=== PATIENT | female | born 1980 | race Caucasian/White ===

== ENCOUNTER 2016-06-12 21:20 | Outpatient (CLI) | payer BC ==
[~2016-06-12] VITALS: Ht 162.6 cm; Wt 66.8 kg
[~2016-06-12 21:20] MED LIST: PRENAT PO
[2016-06-12 21:33] VITALS: Ht 162.6 cm; Wt 66.8 kg
[2016-06-12 21:34] VITALS: BP 117/68; PULSE 89; RESP 18
[2016-06-12] MEDS ORDERED: NITR-58 PO (21:39)
[2016-06-12] MEDS ORDERED: TERBUTALINE 1 MG/ML INJ SC ONE (22:30)
[2016-06-12] MEDS ORDERED: ACETAMINOPHEN 325 MG TAB PO PRN (22:30)
[2016-06-12 22:48] LABS: ADD UMIC YES; URINE BILIRUBIN (Dip) NEGATIVE (NEGATIVE); URINE BLOOD (Dip) TRACE (NEGATIVE); URINE COLOR LT. YELLOW (YELLOW); URINE GLUCOSE (Dip) NEGATIVE (NEGATIVE); URINE KETONES (Dip) NEGATIVE (NEGATIVE); URINE LEUKOCYTE ESTERASE (Dip) 1+ (NEGATIVE); URINE NITRITE (Dip) NEGATIVE (NEGATIVE); URINE TOTAL PROTEIN (Dip) NEGATIVE (NEGATIVE); URINE UROBILINOGEN (Dip) 0.2 E.U./dL (0.1-1.0)
[2016-06-12 23:19] LABS: SQUAMOUS EPITHELIAL CELL,UR FEW; URINE RBCS 0-2 /HPF ([, 0])
[2016-06-12 23:20] LABS: BACTERIA,URINE FEW
--- NOTE | 2016-06-13 02:20 | QN ---
Documentation Comment Laborist Dr Love's pt 36 y.o. with an IUP at 33w 6d c/o UC's since 1800 on 06/11 No bleeding or leaking. ++FM. PMHx: h/o seizures but of Lamictal once . Asked for referral to see another neurologist from her primary doctor since February but still has not been referred. Last seizure was 01/2017. Pt drives. Pt also has a h/o kidney stones. PSHx: lithotrypsy b/l. POBHx: x 5. NKDA. BP 177/68 T= 98.0. NST: baseline 130-140 bpm. Accels to 160 bpm. ? decel to 100bpm but not normal decel shape or contour as lots of accels in the middles. UC's q 10-15 min. Pt reports feeling much better after the one dose of terbutaline, but became tachycardic and didn't like how she felt. Says the UC's have returned somewhat. A: IUP at 33w 6d. False labor. P: Procardia 20 mg p.o. x 1. After 2 hours if pt is feeling much better then may be d/c'ed home. F/U with her doctor 06/16 as scheduled. SOPHY ESTRADA MD Jun 13, 2016 02:20
[2016-06-13] MEDS ORDERED: NIFEdipine 10 MG CAP PO ONE (02:30)
--- NOTE | 2016-06-13 04:49 | TRIAGE ---
OB Triage Datetime Report Generated by CPN: 06/13/2016 04:48 Datetime: 06/13/2016 03:28 Stage of : OB Triage Labor Evaluation Frequency: OCCASS Monitor Mode: External Duration (sec)2399: 40-100 Quality: Mild Pattern: Normal: <= 5 Contractions in 10 Minutes Resting Tone [place]: Relaxed Heart Rate FHR Baseline Rate: 135 Monitor Mode: External US Variability: Moderate 6-25 bpm Accelerations: 15X15 Decelerations: None Category: Category I Datetime: 06/13/2016 02:15 Stage of : OB Triage Labor Evaluation Frequency: OCCASS Monitor Mode: External Duration (sec)2399: 40-100 Quality: Mild Pattern: Normal: <= 5 Contractions in 10 Minutes Resting Tone [place]: Relaxed Heart Rate FHR Baseline Rate: 135 Monitor Mode: External US Variability: Moderate 6-25 bpm Accelerations: 15X15 Decelerations: None Category: Category I Pain Assessment Pain Scale: 3 Pain Presence: Constant Pain Type: Pressure Pain Location: Abdomen; Back Pain Relief Measures: Comfort Measures Datetime: 06/13/2016 01:33 Vaginal Exam Dilatation (cms): 1.0 Effacement (%): 50 Station: -2 Exam By: TRISTIN Cervix, Consistency: Moderate Cervix, Position: Posterior Datetime: 06/13/2016 01:15 Stage of : OB Triage Temperature Route: Oral Labor Evaluation Frequency: X3 Monitor Mode: External Duration (sec)2399: 40-100 Quality: Mild Pattern: Normal: <= 5 Contractions in 10 Minutes Resting Tone [place]: Relaxed Heart Rate FHR Baseline Rate: 135 Monitor Mode: External US Variability: Moderate 6-25 bpm Accelerations: 15X15 Decelerations: None Category: Category I Datetime: 06/13/2016 00:53 Assessment Type: Triage Datetime: 06/13/2016 00:15 Stage of : OB Triage Labor Evaluation Frequency: X3 Monitor Mode: External Duration (sec)2399: 40-80 Quality: Mild Pattern: Normal: <= 5 Contractions in 10 Minutes Resting Tone [place]: Relaxed Heart Rate FHR Baseline Rate: 140 Monitor Mode: External US Variability: Moderate 6-25 bpm Accelerations: 15X15 Decelerations: Variable Category: Category II Pain Assessment Pain Scale: 0 Pain Presence: Constant Pain Type: Pressure Pain Location: Back Pain Relief Measures: Comfort Measures Datetime: 06/12/2016 23:15 Stage of : OB Triage Labor Evaluation Frequency: X1 Monitor Mode: External Duration (sec)2399: 70 Quality: Mild Pattern: Normal: <= 5 Contractions in 10 Minutes Resting Tone [place]: Relaxed Heart Rate FHR Baseline Rate: 130 Monitor Mode: External US Variability: Moderate 6-25 bpm Accelerations: 15X15 Decelerations: Prolonged Category: Category II Pain Assessment Pain Scale: 0 Pain Presence: Constant Pain Type: Pressure Pain Location: Back Pain Relief Measures: Comfort Measures Datetime: 06/12/2016 22:27 Vaginal Exam Dilatation (cms): 1.0 Effacement (%): 50 Station: -2 Exam By: TRISTIN Vaginal Bleeding: None Cervix, Consistency: Moderate Cervix, Position: Anterior Datetime: 06/12/2016 22:15 Stage of : OB Triage Temperature Route: Oral Labor Evaluation Frequency: X4 Monitor Mode: External Duration (sec)2399: 40-80 Quality: Mild Pattern: Normal: <= 5 Contractions in 10 Minutes Resting Tone [place]: Relaxed Heart Rate FHR Baseline Rate: 135 Monitor Mode: External US Variability: Moderate 6-25 bpm Accelerations: 15X15 Decelerations: None Category: Category I Pain Assessment Pain Scale: 5 Pain Presence: Constant Pain Type: Cramping; Ache Pain Location: Abdomen; Back Pain Relief Measures: Comfort Measures Datetime: 06/12/2016 21:37 Assessment Type: Triage Maternal Assessment Level of Consciousness: Fully Conscious DTR's/Clonus: DTRs 2+; No Clonus Headache: Denies Blurred Vision: No Respiratory Effort: Unlabored; Regular Rhythm; Equal Expansion Breath Sounds, Left: Clear and Equal Breath Sounds, Right: Clear and Equal Nausea/Vomiting: Denies RUQ Epigastric Pain: Denies Lower Extremities Edema: None Upper Extremities Edema: None Facial Edema: None Fall Risk Assessment History of Falling: (0) No Secondary Diagnosis: (0) No Ambulatory Aid: (0) Bedrest/Nurse Assist IV Therapy: (0) No Gait: (0) Normal/Bedrest/Immobile Mental Status: (0) Oriented to Own Ability Fall Score: 0 Fall Risk Score Definition: No Risk: No action required Datetime: 06/12/2016 21:26 Time of Arrival: 06/12/2016 21:15 EGA: 33.5 Arrived By: Wheelchair Arrived From: Home Chief Complaint: ABD PAIN AND BACK SINCE 1800 Movement: Present Rupture of Membranes: Denies Vaginal Bleeding: None Vaginal Discharge: Denies Recent Sexual Intercouse: Denies Patient Complaints: Back Pain Additional Patient Complaints: PT. ON MACROBID, LAST DOSE TOMORROW MORNING, HX OF EPILEPSY Time Provider Notified: 06/12/2016 22:15 Provider Notified: NATAILE Initial Plan: EFM, ASSESSMENT, CALL MD FOR ORDERS Datetime: 05/23/2016 13:26 Fall Score: 0 Fall Risk Score Definition: No Risk: No action required Datetime: 05/23/2016 13:17 EGA: 30.6
== END 2016-06-13 03:35 | disposition home or self-care (01) ==
LOC: OBT 21:20 → L-D 21:21 → OBT 06-13 03:35
PROVIDERS: ATTEND Obstetrics & Gynecology
DX: O47.03 False labor before 37 completed weeks of gestation, third trimester (principal); O09.523 Supervision of elderly multigravida, third trimester; Z3A.33 33 weeks gestation of pregnancy
CPT/HCPCS: 81001; 96372; J3105; Z7500; Z7610; 81003; G0463

== ENCOUNTER 2016-06-24 12:39 | Outpatient (CLI) | payer BC ==
[~2016-06-24] VITALS: Ht 162.6 cm; Wt 66.4 kg
[~2016-06-24 12:39] MED LIST changes: +NITR-58 PO
[2016-06-24 12:45] VITALS: BP 126/75; PULSE 101; RESP 17; Ht 162.6 cm; Wt 66.4 kg
--- NOTE | 2016-06-24 13:56 | RADRPT ---
PROCEDURE: US OB biophysical profile. CLINICAL INDICATION: decreased movements, labor TECHNIQUE: Multiple sonographic images of the pelvis were obtained. The images were reviewed on a PACS workstation. COMPARISON: 05/23/2016 FINDINGS: There is a single viable intrauterine gestation. Cardiac activity is present with 134 beats per min [place]. There is a vertex presentation. The placenta is posterior. There is no evidence for an abruption or placenta previa. There is a normal amount of amniotic fluid with an ELEUTERIO = 13.2 cm. Biophysical profile: movement 2/2 tone 2/2. breathing 2/2 ELEUTERIO 2/2 Total 10/25 RPTAT: AA . IMPRESSION: Normal biophysical profile. . .Twin Maldonado MD, Date Time Electronically viewed and signed by .Twin Maldonado MD, MD on 06/24/2016 13:56 .S/
--- NOTE | 2016-06-24 13:56 | RADRPT ---
PROCEDURE: US OB. CLINICAL INDICATION: Size and dates , labor TECHNIQUE: Multiple sonographic images of the pelvis and gravid uterus were obtained. The images were reviewed on a PACS workstation. COMPARISON: 05/23/2016 FINDINGS: There is a single viable intrauterine gestation. Cardiac activity is present with 148 beats per min anh. There is a vertex presentation. The placenta is posterior. There is no evidence for an abruption or placenta previa. There is a normal amount of amniotic fluid with an ELEUTERIO = 13.2 cm. Measurements were made in order to determine age. The results are as follows: BPD =8.5 cm HC =29.6 cm AC =32.9 cm FL =6.9 cm Estimated gestational age of approximately 34 weeks and 6 days based on ultrasound measurements. Clinical age: 35 weeks and 3 days. The estimated date of delivery is 07/30/16, based on ultrasound measurements. The EFW = 2748 g, 56.8%, based on LMP age. RPTAT: AA IMPRESSION: Single viable intrauterine gestation of approximately 34 weeks and 6 days based on ultrasound measu rements. .Twin Maldonado MD, Date Time Electronically viewed and signed by .Twin Maldonado MD, on 06/24/2016 13:56 .S/
[2016-06-24] MEDS ORDERED: NIFEdipine 10 MG CAP PO ONE (14:30)
[2016-06-24 14:57] LABS: URINE BLOOD (Dip) POC Negative (NEGATIVE)
[2016-06-24] MEDS ORDERED: NIFE10CA19 PO (15:21)
--- NOTE | 2016-06-24 15:39 | TRIAGE ---
OB Triage Datetime Report Generated by CPN: 06/24/2016 15:39 Datetime: 06/24/2016 15:00 Labor Evaluation Frequency: X4 Monitor Mode: External Duration (sec)2399: 50-80 Quality: Moderate Pattern: Normal: <= 5 Contractions in 10 Minutes Resting Tone [place]: Relaxed Heart Rate FHR Baseline Rate: 130 Monitor Mode: External US FHR Baseline Changes: No Baseline Change Variability: Moderate 6-25 bpm Accelerations: 15X15 Decelerations: None Category: Category I Pain Assessment Pain Scale: 4 Pain Presence: Intermittent Pain Type: Contraction Pain Location: Abdomen; Back Pain Relief Measures: Comfort Measures Datetime: 06/24/2016 14:51 Vaginal Exam Dilatation (cms): 1.0 Effacement (%): 60 Station: -3 Exam By: KZARICK Datetime: 06/24/2016 13:57 Labor Evaluation Frequency: X3 Monitor Mode: External Duration (sec)2399: 60-100 Quality: Moderate Pattern: Normal: <= 5 Contractions in 10 Minutes Resting Tone [place]: Relaxed Heart Rate FHR Baseline Rate: 130 Monitor Mode: External US FHR Baseline Changes: No Baseline Change Variability: Moderate 6-25 bpm Accelerations: 15X15 Decelerations: None Category: Category I Pain Assessment Pain Scale: 4 Pain Presence: Intermittent Pain Type: Contraction Pain Location: Abdomen; Back Pain Relief Measures: Comfort Measures Datetime: 06/24/2016 13:21 Vaginal Exam Dilatation (cms): 1.0 Effacement (%): 60 Station: -3 Exam By: MIGNON Vaginal Bleeding: None Cervix, Consistency: Moderate Cervix, Position: Posterior Presentation 'A': Cephalic Datetime: 06/24/2016 13:00 Labor Evaluation Frequency: X2 Monitor Mode: External Duration (sec)2399: 50-60 Quality: Moderate Pattern: Normal: <= 5 Contractions in 10 Minutes Resting Tone [place]: Relaxed Heart Rate FHR Baseline Rate: 130 Monitor Mode: External US FHR Baseline Changes: No Baseline Change Variability: Moderate 6-25 bpm Accelerations: 15X15 Decelerations: None Category: Category I Pain Assessment Pain Scale: 4 Pain Presence: Intermittent Pain Type: Contraction Pain Location: Abdomen; Back Pain Relief Measures: Comfort Measures Datetime: 06/24/2016 12:49 Assessment Type: Triage Maternal Assessment Level of Consciousness: Fully Conscious DTR's/Clonus: DTRs 2+; No Clonus Headache: Denies Blurred Vision: No Respiratory Effort: Unlabored; Regular Rhythm Breath Sounds, Left: Clear and Equal Breath Sounds, Right: Clear and Equal Nausea/Vomiting: Present (Annotations: NAUSEA SINCE THIS MORNING, BETTER NOW) RUQ Epigastric Pain: Denies Lower Extremities Edema: None Degree: None Upper Extremities Edema: None Degree: None Facial Edema: None Fall Risk Assessment History of Falling: (0) No Secondary Diagnosis: (0) No Ambulatory Aid: (0) Bedrest/Nurse Assist IV Therapy: (0) No Gait: (0) Normal/Bedrest/Immobile Mental Status: (0) Oriented to Own Ability Fall Score: 0 Fall Risk Score Definition: No Risk: No action required Datetime: 06/24/2016 12:47 Time of Arrival: 06/23/2016 12:30 EGA: 35.2 Arrived By: Ambulatory Arrived From: Other Unit in Hospital Chief Complaint: PT PRESENTS TO TRIAGE FROM NST DUE TO CONTRACTIONS, PT WITH HISTORY OF PTD X5 Movement: Decreased Contractions: Irregular Contractions: Q5-10 Rupture of Membranes: Denies Vaginal Bleeding: None Vaginal Discharge: Denies Recent Sexual Intercouse: Denies Abdominal Trauma: Not Applicable Patient Complaints: Contractions; Back Pain Time Provider Notified: 06/24/2016 13:07 Provider Notified: SHAMSIAN Initial Plan: EFM/SVE/BPP/EFW Datetime: 06/24/2016 12:43 Pain Assessment Pain Scale: 4 Pain Presence: Intermittent Pain Type: Contraction Pain Location: Abdomen; Back Pain Relief Measures: Comfort Measures Datetime: 06/12/2016 21:37 Fall Score: 0 Fall Risk Score Definition: No Risk: No action required Datetime: 06/12/2016 21:26 EGA: 33.5 Datetime: 05/23/2016 13:26 Fall Score: 0 Fall Risk Score Definition: No Risk: No action required Datetime: 05/23/2016 13:17 EGA: 30.6
--- NOTE | 2016-06-27 11:38 | PN ---
DATE: 06/24/2016 SUBJECTIVE: The patient is a 36-year-old, complaining of uterine contractions. No leakage or vaginal bleeding. Positive movement. OBJECTIVE: Within normal limits. Vital signs reviewed and within normal limits. DATA: Ultrasound within normal limits. No cervical change. PLAN: The patient will be discharged home. Follow up with Dr. Love within 1 week. Dictated By: SALVATORE SALAS MD /NTS Conf#: [id number] DID#: [id number]
== END 2016-06-24 15:28 | disposition home or self-care (01) ==
LOC: OBT 12:39 → L-D 12:40 → OBT 15:28
PROVIDERS: ATTEND Obstetrics & Gynecology
DX: O62.9 Abnormality of forces of labor, unspecified (principal); O09.523 Supervision of elderly multigravida, third trimester; Z3A.35 35 weeks gestation of pregnancy
CPT/HCPCS: 76815; 76818; 81003; Z7500; Z7610; G0463

== ENCOUNTER 2016-06-30 19:50 | Inpatient (IN) | payer BC ==
[~2016-06-30] VITALS: Ht 162.6 cm; Wt 68.3 kg
[~2016-06-30 19:50] MED LIST changes: +NIFE10CA19 PO; -NITR-58 PO
--- NOTE | 2016-06-30 19:59 | NSTRPT ---
NST Information Datetime Report Generated by CPN: 06/30/2016 19:59 Datetime: 06/24/2016 10:26 NST Information EGA: 35.3 Test Number: 3 Time on Monitor: 06/24/2016 10:48 Time off Monitor: 06/24/2016 11:20 NST Duration (Min): 32 Reason for NST: labor; Other Reason for NST Other: Delivery Test and Monitor Explained: Monitor Explained; Test Explained; Verbalized Understanding Pulse: 95 Resp: 19 SBP: 118 DBP: 75 Test Evaluation NST Interventions: Reposition Patient Patient States Movement: Present Contraction Frequency: Q3-6min FHR Baseline : 130 Variability: Moderate 6-25bpm Accelerations: 15X15 Decelerations: None FHR Category: Category I NST Results: Reactive Comments: To u/s, ELEUTERIO 16.4, cephalic U/C's q 3-6, pt states she feels them. 1125-Dr Love paged, and 1141, 1152. 1200-Report to Dr Love, order received to send to triage with follow up NST for next week 07/01. POC explained to p t states understanding and compliance. 1207-Pt to triage, accomp by mother. states understanding and denies further questions at this time. Electronically Signed By E-Signature: with User ID: [id number] Datetime: 06/12/2016 21:26 NST Information EGA: 34.3 NST Duration (Min): 32 Datetime: 06/10/2016 13:38 NST Information EGA: 33.3 NST Duration (Min): 26
[2016-06-30 20:00] VITALS: Ht 162.6 cm; Wt 68.3 kg
[2016-06-30 20:02] VITALS: BP 139/93; PULSE 92; RESP 18
[2016-06-30] MEDS ORDERED: METHYLERGONOVINE 0.2 MG INJ IM PRN (21:00)
[2016-06-30] MEDS ORDERED: LACTATED RINGER'S 1,000 ML IV PRN (21:00)
[2016-06-30] MEDS ORDERED: OXYTOCIN 30 UNITS/LR 500 ML IV PRN (21:00)
[2016-06-30] MEDS ORDERED: MISOPROSTOL 200 MCG TAB PR PRN (21:00)
[2016-06-30] MEDS ORDERED: CARBOPROST 250 MCG INJ IM PRN (21:00)
[2016-06-30] MEDS ORDERED: LIDOCAINE 1% (MPF) 30 ML INJ INJ PRN (21:00)
[2016-06-30] MEDS ORDERED: DIAZEPAM 5 MG/ML SYG IV ONE (21:30)
[2016-06-30 22:04] LABS: ADD SCAN DIFF NO
[2016-06-30 22:12] LABS: BASOPHILS % 0.2 % (0.0-2.0); EOSINOPHILS # 0.2 10^3/ul (0.0-0.5); EOSINOPHILS % 1.2 % (0.0-7.0); HEMATOCRIT 32.2 % (37.0-47.0); HEMOGLOBIN 10.8 g/dl (12.0-16.0); LYMPHOCYTES # 2.3 10^3/ul (0.8-2.9); LYMPHOCYTES % 16.3 % (15.0-51.0); MEAN CORPUSCULAR HEMOGLOBIN 27.7 pg (29.0-33.0); MEAN CORPUSCULAR HGB CONC 33.5 g/dl (32.0-37.0); MEAN CORPUSCULAR VOLUME 82.6 fl (82.0-101.0); MEAN PLATELET VOLUME 10.2 fl (7.4-10.4); MONOCYTE # 1.3 10^3/ul (0.3-0.9); MONOCYTES % 9.2 % (0.0-11.0); NEUTROPHIL # 9.9 10^3/ul (1.6-7.5); NEUTROPHILS % 70.5 % (39.0-77.0); PLATELET COUNT 253 10^3/UL (140-415); RED CELL DISTRIBUTION WIDTH 14.3 % (11.5-14.5); WHITE BLOOD COUNT 14.1 10^3/ul (4.8-10.8)
[2016-06-30 22:14] LABS: ADD UMIC YES
[2016-06-30 22:15] LABS: URINE BILIRUBIN (Dip) NEGATIVE (NEGATIVE); URINE BLOOD (Dip) 1+ (NEGATIVE); URINE COLOR LT. YELLOW (YELLOW); URINE GLUCOSE (Dip) NEGATIVE (NEGATIVE); URINE KETONES (Dip) NEGATIVE (NEGATIVE); URINE TOTAL PROTEIN (Dip) NEGATIVE (NEGATIVE)
[2016-06-30] MEDS: LACTATED RINGER'S 1,000 ML IV SCH (22:15)
[2016-06-30 22:16] LABS: URINE LEUKOCYTE ESTERASE (Dip) 1+ (NEGATIVE); URINE NITRITE (Dip) NEGATIVE (NEGATIVE); URINE UROBILINOGEN (Dip) 0.2 E.U./dL (0.1-1.0)
[2016-06-30 22:20] LABS: ALBUMIN 3.3 g/dl (3.3-4.9)
[2016-06-30 22:21] LABS: INR 0.9; POTASSIUM 3.6 mmol/L (3.5-5.1); PROTIME 12.1 Sec (12.2-14.2); PT RATIO 0.9
[2016-06-30 22:22] LABS: PARTIAL THROMBOPLASTIN TIME 25.3 Sec (25.0-35.0)
[2016-06-30 22:22] LABS: SQUAMOUS EPITHELIAL CELL,UR FEW; URINE RBCS 0-2 /HPF (0)
[2016-06-30 22:23] LABS: ALBUMIN/GLOBULIN RATIO 0.94; BILIRUBIN,INDIRECT 0.4 mg/dl (0-1.1); BILIRUBIN,TOTAL 0.4 mg/dl (0.2-1.3); CREATININE 0.42 mg/dl (0.44-1.00); TOTAL PROTEIN 6.8 g/dl (6.1-8.1); URIC ACID 3.9 mg/dl (3.1-7.9)
[2016-06-30 22:24] LABS: CALCIUM 9.7 mg/dl (8.4-10.2)
--- NOTE | 2016-06-30 23:03 | TRIAGE ---
OB Triage Datetime Report Generated by CPN: 06/30/2016 23:03 Datetime: 06/30/2016 22:53 Stage of : Labor Labor Evaluation Frequency: 3-6 Monitor Mode: External Duration (sec)2399: 60-100 Pattern: Normal: <= 5 Contractions in 10 Minutes Resting Tone [place]: Relaxed Heart Rate FHR Baseline Rate: 130 Monitor Mode: External US Variability: Moderate 6-25 bpm Accelerations: 15X15 Decelerations: None Category: Category I Pain Assessment Pain Scale: 5 Pain Presence: Intermittent Pain Type: Contraction Pain Location: Abdomen; Back Pain Goal: 3 Pain Relief Measures: Comfort Measures Datetime: 06/30/2016 21:55 Stage of : Labor Assessment Type: Admission Assessment Vaginal Bleeding: None Maternal Assessment Level of Consciousness: Fully Conscious DTR's/Clonus: DTRs 2+; No Clonus Headache: Denies Blurred Vision: No Respiratory Effort: Unlabored; Regular Rhythm; Equal Expansion Breath Sounds, Left: Clear and Equal Breath Sounds, Right: Clear and Equal Nausea/Vomiting: Denies RUQ Epigastric Pain: Denies Lower Extremities Edema: None Degree: None Upper Extremities Edema: None Degree: None Facial Edema: None Fall Risk Assessment History of Falling: (0) No Secondary Diagnosis: (0) No Ambulatory Aid: (0) Bedrest/Nurse Assist IV Therapy: (20) Yes Gait: (0) Normal/Bedrest/Immobile Mental Status: (0) Oriented to Own Ability Fall Score: 20 Fall Risk Score Definition: No Risk: No action required Labor Evaluation Frequency: 4-6 Duration (sec)2399: 60-120 Pattern: Normal: <= 5 Contractions in 10 Minutes Resting Tone [place]: Relaxed Heart Rate FHR Baseline Rate: 130 Variability: Moderate 6-25 bpm Accelerations: 15X15 Decelerations: None Category: Category I Pain Assessment Pain Scale: 7 Pain Presence: Intermittent Pain Type: Contraction Pain Location: Abdomen; Back Pain Goal: 2 Datetime: 06/30/2016 21:15 Stage of : OB Triage Labor Evaluation Frequency: irregular Monitor Mode: External Duration (sec)2399: 60-100 Pattern: Normal: <= 5 Contractions in 10 Minutes Resting Tone [place]: Relaxed Heart Rate FHR Baseline Rate: 130 Monitor Mode: External US Variability: Moderate 6-25 bpm Accelerations: 15X15 Decelerations: None Category: Category I Pain Assessment Pain Scale: 5 Pain Presence: Intermittent Pain Type: Contraction Pain Location: Abdomen; Back Pain Goal: 3 Pain Relief Measures: Comfort Measures Vaginal Exam Dilatation (cms): 2.0 Effacement (%): 70 Station: -3 Exam By: ANGEL Pederson Vaginal Bleeding: None Cervix, Consistency: Soft Presentation 'A': Cephalic Datetime: 06/30/2016 20:35 Stage of : OB Triage Datetime: 06/30/2016 20:30 Stage of : OB Triage Datetime: 06/30/2016 20:12 Stage of : OB Triage Assessment Type: Admission Assessment Maternal Assessment Level of Consciousness: Fully Conscious DTR's/Clonus: DTRs 2+; No Clonus Headache: Denies Blurred Vision: No Respiratory Effort: Unlabored; Regular Rhythm; Equal Expansion Breath Sounds, Left: Clear and Equal Breath Sounds, Right: Clear and Equal Nausea/Vomiting: Denies RUQ Epigastric Pain: Denies Lower Extremities Edema: None Degree: None Upper Extremities Edema: None Degree: None Facial Edema: None Temperature Route: Oral Fall Risk Assessment History of Falling: (0) No Secondary Diagnosis: (0) No Ambulatory Aid: (0) Bedrest/Nurse Assist IV Therapy: (0) No Gait: (0) Normal/Bedrest/Immobile Mental Status: (0) Oriented to Own Ability Fall Score: 0 Fall Risk Score Definition: No Risk: No action required Monitor Mode: External Contraction Comments: Unable to assess. [place] adjusted. Heart Rate FHR Baseline Rate: 140 Monitor Mode: External US Variability: Moderate 6-25 bpm Accelerations: 15X15 Decelerations: Variable Category: Category II Pain Assessment Pain Scale: 5 Pain Presence: Intermittent Pain Type: Contraction Pain Location: Abdomen; Back; Perineum Pain Goal: 2 Pain Relief Measures: Comfort Measures Datetime: 06/30/2016 20:10 Time of Arrival: 06/30/2016 19:42 EGA: 36.2 Arrived By: Wheelchair Arrived From: Dr. Ramirez Movement: Present Contractions: Regular Time Contractions Began: 06/30/2016 08:00 Contractions: Q2MIN Rupture of Membranes: Denies Vaginal Bleeding: None Vaginal Discharge: Present Recent Sexual Intercouse: Denies Abdominal Trauma: Not Applicable Patient Complaints: Contractions Time Provider Notified: 06/30/2016 20:35 Provider Notified: Abusleme Initial Plan: VS, EFM Datetime: 06/24/2016 12:49 Fall Score: 0 Fall Risk Score Definition: No Risk: No action required Datetime: 06/24/2016 12:47 EGA: 35.2 Datetime: 06/12/2016 21:37 Fall Score: 0 Fall Risk Score Definition: No Risk: No action required Datetime: 06/12/2016 21:26 EGA: 33.5 Datetime: 05/23/2016 13:26 Fall Score: 0 Fall Risk Score Definition: No Risk: No action required Datetime: 05/23/2016 13:17 EGA: 30.6
[2016-06-30] MEDS ORDERED: ONDANSETRON 4 MG INJ IV PRN (23:30)
[2016-06-30] MEDS ORDERED: DIPHENHYDRAMINE 50 MG INJ IV PRN (23:30)
[2016-06-30] MEDS ORDERED: NALOXONE (0.4 MG/ML) INJ IV PRN (23:30)
[2016-06-30 23:41] LABS: BARBITURATES Negative (NEGATIVE); BENZODIAZEPINES Negative (NEGATIVE); CANNABINOIDS Positive (NEGATIVE); COCAINE Negative (NEGATIVE); OPIATES Negative (NEGATIVE)
[2016-07-01] MEDS: LACTATED RINGER'S 1,000 ML IV SCH ×2 (01:40→09:22)
[2016-07-01] MEDS: FENTAnyl 2MCG/ML-ROPIV 0.2% 100 ML BAG EPI SCH ×2 (09:35→09:59)
[2016-07-01] MEDS ORDERED: BUTORPHANOL 2 MG INJ ONE (12:57)
[2016-07-01] MEDS ORDERED: ALBUTEROL 0.5% (NEB) 2.5 MG/0.5 ML AMP ONE (13:12)
[2016-07-01] MEDS ORDERED: CEFAZOLIN 2 GM/50 ML (PMX) 50 ML IVPB ONE ×2 (13:25→13:30)
[2016-07-01] MEDS ORDERED: OXYTOCIN 30 UNITS/LR 500 ML IV PRN ×2 (13:30→14:00)
[2016-07-01] MEDS ORDERED: ALBUTEROL/IPRATROPIUM (NEB) 3 ML AMP HHN PRN (13:30)
[2016-07-01] MEDS ORDERED: morphine SULFATE/PF (10 MG/10 ML) INJ ONE (13:30)
[2016-07-01] MEDS ORDERED: MISOPROSTOL 200 MCG TAB PR PRN ×2 (13:30→14:00)
[2016-07-01] MEDS ORDERED: CARBOPROST 250 MCG INJ IM PRN ×2 (13:30→14:00)
[2016-07-01] MEDS ORDERED: OXYTOCIN 30 UNITS/LR 500 ML IV SCH ×4 (13:30)
[2016-07-01] MEDS ORDERED: ONDANSETRON 4 MG INJ ONE (13:30)
[2016-07-01] MEDS ORDERED: ALBUTEROL 0.083% (NEB) 2.5 MG/3 ML AMP HHN PRN (13:30)
[2016-07-01] MEDS ORDERED: BUTORPHANOL 2 MG INJ IV PRN (13:30)
[2016-07-01] MEDS ORDERED: OXYTOCIN 30 UNITS/LR 500 ML IV ONE (13:30)
[2016-07-01] MEDS ORDERED: AMPICILLIN 2 GM/NS (PMX) 100 ML IV ONE (13:30)
[2016-07-01] MEDS ORDERED: EPHEDrine SULFATE 50 MG/5 ML SYG ONE (13:30)
[2016-07-01] MEDS ORDERED: METHYLERGONOVINE 0.2 MG INJ IM PRN ×2 (13:30→14:00)
[2016-07-01] MEDS ORDERED: CEFAZOLIN 3 GM in DEXTROSE 5% 100 ML IV SCH (13:30)
[2016-07-01] MEDS ORDERED: OXYTOCIN 10 UNIT INJ ONE (13:31)
[2016-07-01] MEDS ORDERED: LIDOCAINE 2%/EPI 30 ML INJ ONE (13:31)
[2016-07-01] MEDS ORDERED: METOCLOPRAMIDE 10 MG INJ ONE (13:31)
[2016-07-01] MEDS ORDERED: LACTATED RINGER'S 1,000 ML IV SCH (13:55)
[2016-07-01] MEDS ORDERED: METHYLERGONOVINE 0.2 MG TAB PO PRN (14:00)
[2016-07-01] MEDS ORDERED: ACETAMINOPHEN/CODEINE #3 TAB PO PRN (14:00)
[2016-07-01] MEDS ORDERED: LANOLIN 7 GM TUBE TOP PRN (14:00)
[2016-07-01] MEDS ORDERED: NIFEdipine 10 MG CAP PO PRN (14:00)
[2016-07-01] MEDS: IBUPROFEN 800 MG TAB PO SCH ×2 (14:00→22:00)
[2016-07-01] MEDS ORDERED: NA PHOSPHATE/BIPHOS 133 ML ENEMA PR PRN (14:00)
--- NOTE | 2016-07-01 14:08 | PREOPHP ---
DATE OF ADMISSION: 06/30/2016 HISTORY OF PRESENT ILLNESS: This is a 36-year-old female, 6, para 5 with 5 living children, EDC 07/26/2016, last period 10/13/2015. This patient had a history of depression, asthma, kidney stone of bipolar disorder, epilepsy with a history of head trauma, tonsillectomy and nose surgery. She had 5 previous deliveries, all of them early. The earliest was at 33 weeks and the latest at 38 weeks. At this time, she has been admitted for contractions and dilatation of 2 cm, 80% effaced. The patient had been camila all night and she had an epidural due to severe pain and she had no progress of labor. An evaluation after several hours of labor was done and artificial rupture of m embranes was done. The patient started having bleeding. She had a history of placenta previa that technically had moved and at the time of rupture of membranes she started bleeding with clots, with the possibility of an abruption. The patient's heart tones also went down with slight hypotension a nd she started having some chest pain. She stated that at the time she had episodes of chest pain a nd difficulty breathing, she was given a breathing treatment and Stadol for the chest pain in spite of having an epidural anesthesia and she started feeling better. The patient had pain on Lamictal d uring the that she had stopped recently, due to the last visit to her neurologist and this what he advised her to do. She also is requesting a tubal ligation. At this time due to variability and a prolonged deceleration of 8 minutes and active bleeding with clots and she is advised for a section and tubal ligation as she requested a tubal lig ation. The patient had been on Effexor, buspirone and lamotrigine during the whole . She was take n off the Effexor and she was given Zoloft. She has a history of being asthmatic and she also smoke s. FAMILY HISTORY: Diabetes, malignancy, hypertension and heart disease. ALLERGIES: SHE IS NOT ALLERGIC TO ANY MEDICATION. PHYSICAL EXAMINATION: VITAL SIGNS: At this time, the blood pressure is 90/80, pulse is 88, respirations 16. GENERAL: She feels better after the respiratory treatment with nebulization. The patient is having no pain right now. She has an epidural. CHEST: Lungs clear. HEART: Normal sinus rhythm. ABDOMEN: Soft. Uterus is at term. The contractions are seen every 5 minutes now. PELVIC: The cervix was 4 cm dilated and 90% effaced. The baby was very high up in the pelvis, -3. EXTREMITIES: Normal with normal pulses, no edema. Normal reflexes. DIAGNOSIS: A 36-5/7 weeks of , vaginal bleeding, possible abruption and now variant heart tones. PLAN: She is having a primary section. She has been advised for a tubal ligation as well. We will look for the papers to be able to do that. The patient has been advised of the possible r isks and possible complications of the procedure with alternatives and options. Written information was provided. She had no more questions and agreed to go ahead with the procedure with full unders tanding. Dictated By: LA NENA CERRATO/MOUNIKA Conf#: [id number] DID#: [id number]
--- NOTE | 2016-07-01 15:05 | OPR ---
Date/Time of Note Date/Time of Note DATE: 07/01/16 TIME: 15:01 Operative Report Free Text/Dictation PRIMARY C/S TL Procedure Date: Jul 01, 2016 Preoperative Diagnosis 36.5/7 WEEKS OF IN ACTIVE LABOR VAGINAL BLEEDING PLACENTAL ABRUPTION NON REASSURING FHT MULTIPARITY Postoperative Diagnosis SAME BABY GIRL 9 Surgeon: LA NENA MCKINNEY MD assistant pressman: DAXA JOSEPH M.D. Anesthesia: epidural Anesthesiologist: MARYCHUY ROMO MD Estimated Blood Loss: other Specimens PLACENTA Complications: None Pt Condition Post Procedure: stable Disposition: PACU LA NENA MCKINNEY MD Jul 01, 2016 15:05
[2016-07-01] MEDS ORDERED: morphine SULFATE/PF (10 MG/10 ML) INJ EPI ONE (15:30)
[2016-07-01] MEDS ORDERED: HYDROmorphONE 1 MG/ML SYG IV PRN ×2 (15:30)
[2016-07-01] MEDS ORDERED: ONDANSETRON 4 MG INJ IV PRN (15:30)
[2016-07-01] MEDS ORDERED: DIPHENHYDRAMINE 50 MG INJ IV PRN (15:30)
[2016-07-01] MEDS ORDERED: NALOXONE (0.4 MG/ML) INJ IV PRN (15:30)
[2016-07-01] MEDS ORDERED: morphine 2 MG INJ IV PRN ×2 (15:30)
[2016-07-01] MEDS: KETOROLAC 30 MG INJ IV PRN ×2 (15:51→21:29)
--- NOTE | 2016-07-01 15:58 | OPR ---
DATE OF OPERATION: 07/01/2016 PREOPERATIVE DIAGNOSIS: Active labor, vaginal bleeding, placental abruption, nonreassuring he art tones and multiparity. POSTOPERATIVE DIAGNOSIS: Active labor, vaginal bleeding, placental abruption, nonreassuring h eart tones and multiparity PROCEDURE: Primary low segment transverse section and bilateral salpingectomy. SURGEON: La Nena Love MD CAKE CUTTER MACHINE: John Lira MD ANESTHESIOLOGIST: Mahesh Veliz MD ANESTHESIA: Epidural. COMPLICATIONS: None. PROCEDURE: The patient was given an epidural anesthesia during labor that was boosted up for the ce sarean section. The abdomen was prepped and draped and a Osborn catheter had been placed in the blad sean earlier. A transverse incision was made suprapubically over the midline for about 10 cm in lin th. The abdomen was opened in layers without difficulty. The abdominal cavity was reached. The lo wer uterine segment was identified. The bladder flap was made. The uterus was opened in the midlin e with a scalpel and the incision was increased laterally on either side for about 3 inches. The ba by's head was delivered. There was a cord around the neck that was passed through the . The b rodrigue was delivered without complications. The cord was clamped and cut. The baby was 36-5/7 weeks a nd with 9. The baby was handed over to the rotary planer set up operator team. The cord blood was obtained. The placenta was removed. The uterus was swabbed out and closed in 2 layers using #1 Monocryl imbe dding the first line of sutures. Hemostasis was good. Interrupted sutures with MH 0 chromic were a lso used for hemostasis. Both tubes and ovaries appeared to be normal. The uterus was normal. As per patient's request for tubal ligation, bilateral salpingectomy followed by clamping the mesosalpinx all the way up to the c ornual end of the tube. The tube was removed and sutured with a 2-0 Vicryl suture and good hemostas is was achieved. This was done on both sides. The abdominal cavity was cleaned out and closed in layers using a 2-0 Vicryl suture for peritoneum, #0 PDS looped suture for the fascia, 2-0 Vicryl for the subcutaneous tissue, and 3-0 Monocryl subcut icular to the skin. Dermabond and Steri-Strips were used. The patient tolerated the procedure well and left the OR awake and stable. Sponge counts and instrument counts were correct. Intravenous a ntibiotics were given for prophylaxis. Blood loss was approximately 600 mL. The urine was clear at the end of the procedure. Dictated By: LA NENA CERRATO/MOUNIKA Conf#: [id number] DID#: [id number]
[2016-07-01] MEDS: OXYTOCIN 30 UNITS/LR 500 ML IV SCH ×2 (16:28→19:51)
[2016-07-01] MEDS ORDERED: AMPICILLIN 1 GM/NS (PMX) 50 ML IV SCH (17:30)
[2016-07-01 18:30] VITALS: BP 133/83; PULSE 86; RESP 20
[2016-07-01 19:30] VITALS: BP 126/68; PULSE 86; RESP 18
[2016-07-01] MEDS: CEFAZOLIN 2 GM/50 ML (PMX) 50 ML IV SCH (20:55)
[2016-07-01] MEDS: SENNA/DOCUSATE NA (8.6MG/50MG) TAB PO SCH (21:00)
[2016-07-02 00:15] VITALS: BP 114/63; PULSE 85; RESP 18
[2016-07-02] MEDS: KETOROLAC 30 MG INJ IV PRN ×2 (02:55→08:21)
[2016-07-02] MEDS: CEFAZOLIN 2 GM/50 ML (PMX) 50 ML IV SCH ×2 (03:33→12:27)
[2016-07-02 04:00] VITALS: BP 108/62; PULSE 80; RESP 18
[2016-07-02 07:00] LABS: ADD SCAN DIFF NO
[2016-07-02 07:06] LABS: BASOPHILS % 0.3 % (0.0-2.0); EOSINOPHILS # 0.1 10^3/ul (0.0-0.5); EOSINOPHILS % 0.8 % (0.0-7.0); HEMATOCRIT 29.3 % (37.0-47.0); HEMOGLOBIN 9.1 g/dl (12.0-16.0); LYMPHOCYTES # 1.6 10^3/ul (0.8-2.9); LYMPHOCYTES % 14.9 % (15.0-51.0); MEAN CORPUSCULAR HEMOGLOBIN 26.5 pg (29.0-33.0); MEAN CORPUSCULAR HGB CONC 31.1 g/dl (32.0-37.0); MEAN CORPUSCULAR VOLUME 85.4 fl (82.0-101.0); MEAN PLATELET VOLUME 10.1 fl (7.4-10.4); MONOCYTE # 0.8 10^3/ul (0.3-0.9); MONOCYTES % 7.2 % (0.0-11.0); NEUTROPHIL # 8.3 10^3/ul (1.6-7.5); NEUTROPHILS % 75.7 % (39.0-77.0); PLATELET COUNT 184 10^3/UL (140-415); RED BLOOD COUNT 3.43 10^6/ul (4.20-5.40); RED CELL DISTRIBUTION WIDTH 14.6 % (11.5-14.5)
[2016-07-02 07:40] VITALS: BP 111/68; PULSE 69; RESP 20
[2016-07-02] MEDS: MULTIVIT/MIN/FOLATE/IRON/PREN TAB PO SCH (09:51)
[2016-07-02] MEDS: SENNA/DOCUSATE NA (8.6MG/50MG) TAB PO SCH ×2 (09:51→20:33)
--- NOTE | 2016-07-02 11:40 | PN ---
Date/Time of Note Date/Time of Note DATE: 07/02/16 TIME: 11:39 Assessment/Plan Lines/Catheters IV Catheter Type (from Nrsg): Peripheral IV Subjective 24 Hr Interval Summary day 1 post c/s doing well feels good pain controlled incision dry lochia normal anemic, not symptomatic Constitutional: BM, ambulates, flatus, improved, no complaints, urine output Feeding: advancing diet Pain Control: well controlled Detailed Summary Eyes: no complaints ENT: no complaints Respiratory: no complaints Cardiovascular: no complaints Gastrointestinal: no complaints Genitourinary: no complaints Musculoskeletal: no complaints Skin: no complaints Neurologic: no complaints Endocrine: no complaints Lymphatic: no complaints Psychological: nl mood/affect, no complaints Immunologic: no complaints Exam/Review of Systems Vital Signs Vitals Vital Signs Date Time Temp Pulse Resp B/P Pulse Ox O2 Delivery O2 Flow Rate FiO2 07/02/16 07:40 98.0 69 20 111/68 Room Air 07/02/16 01:00 95 21 Intake and Output 07/01/16 07/01/16 07/02/16 15:00 23:00 07:00 Intake Total 1250 ml 50 ml 550 ml Output Total 2230 ml 550 ml 900 ml Balance -980 ml -500 ml -350 ml Exam Constitutional: alert, oriented, well developed Psych: nl mood/affect, no complaints Head: atraumatic, normocephalic Eyes: EOMI, nl conjunctiva, nl lids, nl sclera ENMT: mucosa pink and moist, nl external ears & nose, nl lips & teeth, nl nasal mucosa & septum Neck: non-tender, supple Respiratory: clear to auscultation, normal air movement Cardiovascular: nl pulses, regular rate and rhythm Gastrointestinal: nl liver, spleen, non-tender, soft Musculoskeletal: nl extremities to inspection, nl gait and stance Extremities: normal pulses Neurological: SURFACER OPERATOR II-XII intact, nl mental status, nl speech, nl strength Skin: nl turgor, rash or lesions Lymph: nl lymph nodes Results Result Diagram: 07/02/16 0645 06/30/16 2145 LA NENA MCKINNEY MD Jul 02, 2016 11:40
[2016-07-02 13:08] VITALS: BP 111/61; PULSE 92; RESP 20
[2016-07-02] MEDS: KETOROLAC 30 MG INJ IV SCH ×2 (13:53→18:21)
[2016-07-02] MEDS: ACETAMINOPHEN/CODEINE #3 TAB PO PRN ×2 (14:48→19:55)
[2016-07-02 16:29] VITALS: BP 118/67; PULSE 79; RESP 19
[2016-07-02 20:00] VITALS: BP 116/71; PULSE 94; RESP 18
[2016-07-02] MEDS: HYDROCORTISONE 2.5% 28.35 GM OINT TOP SCH (22:12)
[2016-07-02] MEDS: OXYCODONE/ACETAMINOPHEN (5/325) TAB PO PRN (23:29)
[2016-07-02] MEDS ORDERED: OXYCODONE/ACETAMINOPHEN (5/325) TAB PO PRN (23:30)
[2016-07-03] MEDS: KETOROLAC 30 MG INJ IV SCH ×4 (00:34→18:45)
[2016-07-03 04:00] VITALS: BP 112/63; PULSE 99; RESP 18
[2016-07-03] MEDS: OXYCODONE/ACETAMINOPHEN (5/325) TAB PO PRN ×3 (04:21→20:56)
[2016-07-03 07:45] VITALS: BP 127/73; PULSE 100; RESP 19
[2016-07-03] MEDS: HYDROCORTISONE 2.5% 28.35 GM OINT TOP SCH ×2 (10:18→20:57)
[2016-07-03] MEDS: MULTIVIT/MIN/FOLATE/IRON/PREN TAB PO SCH (10:18)
[2016-07-03] MEDS: SENNA/DOCUSATE NA (8.6MG/50MG) TAB PO SCH ×2 (10:18→20:55)
[2016-07-03 10:23] LABS: ADD SCAN DIFF NO
[2016-07-03 10:26] LABS: BASOPHILS % 0.2 % (0.0-2.0); EOSINOPHILS # 0.1 10^3/ul (0.0-0.5); EOSINOPHILS % 1.1 % (0.0-7.0); HEMATOCRIT 31.7 % (37.0-47.0); HEMOGLOBIN 10.1 g/dl (12.0-16.0); LYMPHOCYTES # 1.8 10^3/ul (0.8-2.9); LYMPHOCYTES % 16.9 % (15.0-51.0); MEAN CORPUSCULAR HEMOGLOBIN 26.8 pg (29.0-33.0); MEAN CORPUSCULAR HGB CONC 31.9 g/dl (32.0-37.0); MEAN CORPUSCULAR VOLUME 84.1 fl (82.0-101.0); MEAN PLATELET VOLUME 10.6 fl (7.4-10.4); MONOCYTE # 0.8 10^3/ul (0.3-0.9); MONOCYTES % 7.8 % (0.0-11.0); NEUTROPHIL # 7.9 10^3/ul (1.6-7.5); NEUTROPHILS % 73.1 % (39.0-77.0); PLATELET COUNT 274 10^3/UL (140-415); RED BLOOD COUNT 3.77 10^6/ul (4.20-5.40); RED CELL DISTRIBUTION WIDTH 14.5 % (11.5-14.5); WHITE BLOOD COUNT 10.7 10^3/ul (4.8-10.8)
--- NOTE | 2016-07-03 14:18 | QN ---
Documentation Comment pt doing well no complaints vss exam wnl ap pod 2 pt doing well continue care SALVATORE SALAS MD Jul 03, 2016 14:18
[2016-07-03 15:39] VITALS: BP 126/78; PULSE 99; RESP 18
[2016-07-03 20:00] VITALS: BP 126/69; PULSE 91; RESP 18
[2016-07-04] MEDS: KETOROLAC 30 MG INJ IV SCH ×3 (00:52→12:08)
[2016-07-04 03:04] VITALS: BP 130/72; PULSE 74; RESP 20
[2016-07-04] MEDS: OXYCODONE/ACETAMINOPHEN (5/325) TAB PO PRN (05:57)
[2016-07-04 07:45] VITALS: BP 127/82; PULSE 95; RESP 18
[2016-07-04] MEDS: HYDROCORTISONE 2.5% 28.35 GM OINT TOP SCH (08:49)
[2016-07-04] MEDS: MULTIVIT/MIN/FOLATE/IRON/PREN TAB PO SCH (08:49)
[2016-07-04] MEDS: SENNA/DOCUSATE NA (8.6MG/50MG) TAB PO SCH (08:49)
[2016-07-04] MEDS ORDERED: DIPHTH/TET/ACEL PERTUSS (ADULT) 0.5 ML VIAL IM* ONE (09:00)
--- NOTE | 2016-07-04 10:43 | PD.PPDC ---
LEAD PASTOR Discharge Instruction Condition Patient Condition: Good Diet Diet: Resume Regular Diet Activity/Restrictions Activity: Normal Activity May Shower Restrictions: No Exercising No Lifting No Driving No Sexual Activity Nothing in the Vagina No [place] No Tampons, douche Wound/Drain Care Instructions Wound/Drain Care Instructions: Remove Steri Strips in 1 week Follow-up Follow-up with Physician: 2, Week/Weeks Return to clinic for FRUIT WASHER Instructions: Fever greater than 101 Chills Worsening abdominal pain Excessive Vaginal Bleeding More than 2 pads per hour Unable to tolerate diet OB Instructions: Breast Tenderness Depression Blurried Vision Headache Surgical Instructions: Incisional Drainage Incisional Redness LA NENA MCKINNEY MD Jul 04, 2016 10:43
--- NOTE | 2016-07-05 01:53 | DS ---
DATE OF ADMISSION: 06/30/2016 DATE OF DISCHARGE: 07/04/2016 HISTORY: This is a 36-year-old female, 6, para 5 with 5 living children at home and EDC of 07/26/2016. This patient came in with contractions at 36 and 5 days of her . She had a hi story of having early deliveries after 36 weeks 3 of them, and one was at 33 weeks. This patient [place] d a history of seizures and she has been on anticonvulsive therapy, Lamictal, during the . She has stopped it in the last month. She has had asthma also as a child. She had been in labor f or quite a long time, for at least 24 hours, with a dilatation of 3 cm, 100% effacement, -3 station. The patient had an episode of vaginal bleeding that was not stopping and an abruption placen ta was diagnosed and section and tubal ligation was performed. She did well after surgery and her laboratory testing were normal after her discharge. The hemoglobin was 10.1 and hematocrit 31.7, not much different from what she had before . She is chronically anemic with no symp toms. She has been voiding well, eating, passing gas with bowel movement with a clean incision, afe brile and ambulatory with instructions of what to do and not to do. She was given [place] and ibuprof en p.r.n. She has been afebrile and stable with no other symptoms and she has been referred to the neurologist for her of her epilepsy treatment and she is supposed to see me in a week or 10 da ys to reevaluate her after the section. She is happy to go home. PREOPERATIVE DIAGNOSIS: 1. 36 and 5 weeks' in labor. 2. Abruptio placenta with third trimester bleeding and no progress of labor. 3. Multiparity. 4. A primary section and tubal ligation were done without complications. DISCHARGE INSTRUCTIONS: She has been sent home with instructions of seeing me if she had any proble ms, or any time, and/or in a week in the office. Dictated By: LA NENA CERRATO/NTS Conf#: [id number] DID#: [id number]
== END 2016-07-04 14:18 | disposition home or self-care (01) | DRG 765 ==
LOC: OBT 19:50 → L-D 19:54 → OBT 21:32 → L-D 07-01 13:46 → PP1 07-01 18:26
PROVIDERS: ADMIT Obstetrics & Gynecology; ATTEND Obstetrics & Gynecology
PROC: 0UT70ZZ Resection of Bilateral Fallopian Tubes, Open Approach (ICD-10-PCS; 2016-07-01)
PROC: 10D00Z1 Extraction of Products of Conception, Low, Open Approach (ICD-10-PCS; principal; 2016-07-01 14:00)
DX: O45.93 Premature separation of placenta, unspecified, third trimester (principal); O99.354 Diseases of the nervous system complicating childbirth; O99.344 Other mental disorders complicating childbirth; F32.9 Major depressive disorder, single episode, unspecified; O99.52 Diseases of the respiratory system complicating childbirth; Z3A.36 36 weeks gestation of pregnancy; Z37.0 Single live birth; G40.909 Epilepsy, unspecified, not intractable, without status epilepticus; J45.909 Unspecified asthma, uncomplicated; O76 Abnormality in fetal heart rate and rhythm complicating labor and delivery; Z30.2 Encounter for sterilization
CPT/HCPCS: 62319; 80053; 80307; 81001; 81003; 84560; 85025; 85384; 85610; 85730; 86592; 86885; 86900; 86901; 87340; 88302; 88307; 90715; 94760; 99464; C1751; G0463; J0690; J1885; J2270; J2274; J2405; J2590; J2765; J3010; J7120